=== PATIENT | male | born 2000 | race Caucasian/White ===

== ENCOUNTER 2023-03-21 16:15 | Emergency (ER) | payer BC ==
[~2023-03-21] VITALS: Ht 182.9 cm; Wt 86.6 kg
[2023-03-21] MEDS ORDERED: TDAP [DIPH/PERTUSSIS/TET] 0.5 ML VIAL IM ONE ×2 (18:00→18:44)
[2023-03-21] MEDS ORDERED: LIDOCAINE 1%-EPI 1:100,000 20 ML VIAL ONE (18:08)
[2023-03-21 19:00] VITALS: BP 134/84; TEMP 98.1; O2SAT 100
== END 2023-03-21 19:00 | disposition home or self-care (01) ==
LOC: ER 16:15
DX: S01.01XA Laceration without foreign body of scalp, initial encounter (principal); Z60.2 Problems related to living alone; W01.0XXA Fall on same level from slipping, tripping and stumbling without subsequent striking against object, initial encounter; Y93.89 Activity, other specified; Y92.89 Other specified places as the place of occurrence of the external cause; Y99.8 Other external cause status
CPT/HCPCS: 99283; 12002; 90471; 90715; J3490

== ENCOUNTER 2023-03-30 14:11 | Emergency (ER) | payer BC ==
[~2023-03-30] VITALS: Ht 182.9 cm; Wt 86.2 kg
[2023-03-30 14:19] VITALS: BP 123/52; TEMP 98.2
[2023-03-30 14:58] VITALS: O2SAT 100
== END 2023-03-30 14:59 | disposition home or self-care (01) ==
LOC: ER 14:12
DX: S01.81XD Laceration without foreign body of other part of head, subsequent encounter (principal); Z60.2 Problems related to living alone; X58.XXXD Exposure to other specified factors, subsequent encounter